=== PATIENT | male | born 1970 | race Caucasian/White ===

== ENCOUNTER 2021-04-10 07:01 | Emergency (ER) | payer BC ==
[2021-04-10 07:15] VITALS: BP 140/91; PULSE 81; O2SAT 98
[2021-04-10] MEDS ORDERED: Adacel Vial IM ONE ×2 (07:25→07:32)
[2021-04-10] MEDS ORDERED: Cleocin Phosphate IV 600 MG/4 ML IM STA (07:29)
[2021-04-10] MEDS ORDERED: Cleocin Phosphate IV 600 MG/4 ML ONE (07:32)
[2021-04-10] MEDS ORDERED: TYLENOL 325 MG PO ONE (07:36)
[2021-04-10] MEDS ORDERED: TORAdol 30 mg Injection ONE (07:43)
[2021-04-10] MEDS ORDERED: TYLENOL 325 MG ONE (07:44)
[2021-04-10] MEDS ORDERED: TORAdol 30 mg Injection IM ONE (07:44)
--- NOTE | 2021-04-10 07:44 | ERPHSYRPT ---
- History of Present Illness Time Seen by Provider: 04/10/21 07:15 Source: patient Exam Limitations: no limitations Patient Subjective Stated Complaint: Laceration Triage Nursing Assessment: Patient ambulated back to ED and transferred self to bed. Patient A+O X3. Patient's skin pink, warm and dry. Patient complains of laceration to right side palm of hand. Patient states he was taking a bag of trash to the dumpster when his hand went through the bag causing window glass that was at the bottom of the bag went through his hand. Patient complains of pain and numbness to right hand and fingers 6/10. 2 cm laceration noted to right hand palm. Physician History: Patient is a 50-year-old male presents to emergency department for evaluation of laceration to the palmar aspect of his right hand. Patient states he was taking out the trash pushed the trash bag and subsequently impaled himself with broken glass. Injury occurred just prior to arrival. Patient complains of numbness pain and tingling to the fingers along the median nerve distribution. Pain rated 6 out of 10. No other injuries reported. Symptoms are mild to moderate in intensity. Palpation reproduces symptoms. No blunt trauma. No bony pain or tenderness. Patient states otherwise healthy. He voices no other complaints or concerns at this time. Occurred: just prior to arrival Method of Injury: other (Impaled right hand with glass.) Quality: constant Severity of Pain-Max: moderate Severity of Pain-Current: mild Extremities Pain Location: hand: right Modifying Factors: Improves With: movement Associated Symptoms: none Allergies/Adverse Reactions: No Known Drug Allergies Allergy (Unverified 04/10/21 07:05) Home Medications: Oxycodone HCl/Acetaminophen [Percocet 7.5-325 mg Tablet] 1 tab PO TID 04/10/21 [History] Hx Tetanus, Diphtheria Vaccination/Date Given: No Hx Influenza Vaccination/Date Given: No Hx Pneumococcal Vaccination/Date Given: No Immunizations Up to Date: Yes Travel Risk - International Travel Have you traveled outside of the country in past 3 weeks: No - Coronavirus Screening Are you exhibiting any of the following symptoms?: No Close contact with a COVID-19 positive Pt in past 14-21 Days: No - Vaccine Status Have you recieved a Covid-19 vaccination: Yes Resource Economist: Moderna - Vaccination Dates Date of 2cond Vaccination (if applicable): 04/27/2020 Comment: Booster 01/02/2021 - Review of Systems Constitutional: No Symptoms, No Fever, No Chills Eyes: No Symptoms Ears, Nose, & Throat: No Symptoms Respiratory: No Symptoms, No Cough, No Dyspnea Cardiac: No Symptoms, No Chest Pain, No Edema, No Syncope Abdominal/Gastrointestinal: No Symptoms, No Abdominal Pain, No Nausea, No Vomiting, No Diarrhea Genitourinary Symptoms: No Symptoms, No Dysuria Musculoskeletal: No Symptoms, No Back Pain, No Neck Pain Skin: No Symptoms, No Rash Neurological: No Symptoms, No Dizziness, No Focal Weakness, No Sensory Changes Psychological: No Symptoms Endocrine: No Symptoms Hematologic/Lymphatic: No Symptoms Immunological/Allergic: No Symptoms All Other Systems: Reviewed and Negative - Past Medical History Pertinent Past Medical History: Yes Neurological History: No Pertinent History ENT History: No Pertinent History Cardiac History: No Pertinent History Respiratory History: No Pertinent History Endocrine Medical History: No Pertinent History Musculoskeletal History: Other GI Medical History: No Pertinent History History: No Pertinent History Psycho-Social History: No Pertinent History Male Reproductive Disorders: No Pertinent History Other Medical History: back pain - Past Surgical History Past Surgical History: Yes Neuro Surgical History: No Pertinent History Cardiac: No Pertinent History Respiratory: No Pertinent History Gastrointestinal: No Pertinent History Genitourinary: No Pertinent History Musculoskeletal: Orthopedic Surgery Male Surgical History: No Pertinent History Other Surgical History: back surgery with rods and pins. Back stimulator - Social History Smoking Status: Never smoker Exposure to second hand smoke: No Drug Use: none Patient Lives Alone: No - Nursing Vital Signs Nursing Vital Signs: Initial Vital Signs Temperature 97.4 F 04/10/21 07:07 Pulse Rate 81 04/10/21 07:07 Respiratory Rate 18 04/10/21 07:07 Blood Pressure 140/91 04/10/21 07:07 O2 Sat by Pulse Oximetry 98 04/10/21 07:07 Pain Scale Pain Intensity 6 - Physical Exam General Appearance: no apparent distress, alert Eyes, Ears, Nose, Throat Exam: normal ENT inspection, moist mucous membranes Neck Exam: non-tender, supple Cardiovascular/Respiratory Exam: chest non-tender, normal breath sounds, regular rate/rhythm, no respiratory distress Abdominal Exam: non-tender, No guarding Back Exam: normal inspection, No vertebral tenderness Shoulder Exam: normal inspection, non-tender, no evidence of injury, normal ROM Elbow/Forearm Exam: normal inspection, non-tender, no evidence of injury, normal ROM Wrist Exam: normal inspection, non-tender, no evidence of injury, normal ROM Hand Exam: laceration, limited ROM (Limited range of motion due to pain. There is a 1 cm laceration/puncture wound with a flap to the palmar aspect of the right hand at the level of the median nerve. No active bleeding upon my inspection.), soft tissue tenderness (Wound was explored however no foreign body was observed. Patient denied foreign body sensation. Exploration was somewhat limited due to the amount of blood. ), No bone tenderness Neuro/Tendon Exam: normal sensation, normal motor functions Mental Status Exam: alert, oriented x 3, cooperative Skin Exam: normal color, warm, dry SpO2 Interpretation: normal SpO2: 98 O2 Delivery: Room Air - Course Nursing assessment & vital signs reviewed: Yes Ordered Tests: Medication Summary Discontinued Medications Generic Name Dose Route Start Last Admin Trade Name Freq PRN Reason Stop Dose Admin Acetaminophen 975 mg 04/10/21 07:36 04/10/21 07:45 Acetaminophen 325 Mg Tablet PO 04/10/21 07:37 975 mg STAT ONE Administration Acetaminophen Confirm 04/10/21 07:44 Acetaminophen 325 Mg Tablet Administered 04/10/21 07:45 Dose 975 mg .ROUTE .STK-MED ONE Clindamycin Phosphate 600 mg 04/10/21 07:29 04/10/21 07:34 Clindamycin Phosphate 600 Mg/4 Ml Vial IM 04/10/21 07:30 600 mg ONCE STA Administration Clindamycin Phosphate Confirm 04/10/21 07:32 Clindamycin Phosphate 600 Mg/4 Ml Vial Administered 04/10/21 07:33 Dose 600 mg .ROUTE .STK-MED ONE Diphtheria/Tetanus/Acell Pertussis 0.5 ml 04/10/21 07:25 04/10/21 07:34 Tdap --Diph,Pertuss(Acell),Tet Vac/Pf 0.5 Ml Vial IM 04/10/21 07:26 0.5 ml .ONCE ONE Administration Diphtheria/Tetanus/Acell Pertussis Confirm 04/10/21 07:32 Tdap --Diph,Pertuss(Acell),Tet Vac/Pf 0.5 Ml Vial Administered 04/10/21 07:33 Dose 0.5 ml IM .STK-MED ONE Ketorolac Tromethamine 30 mg 04/10/21 07:44 04/10/21 07:45 Ketorolac Tromethamine 30 Mg/Ml Inj IM 04/10/21 07:45 30 mg STAT ONE Administration Ketorolac Tromethamine Confirm 04/10/21 07:43 Ketorolac Tromethamine 30 Mg/Ml Inj Administered 04/10/21 07:44 Dose 30 mg .ROUTE .STK-MED ONE - Progress Progress: improved Progress Note: Patient reassessed. Patient received Tylenol and Toradol for pain. Pain significantly improved. Patient has decreased sensation along the median nerve distribution of the right hand. There appears to be significant nerve injury. No blunt trauma. Movement is limited due to pain. Patient received a tetanus update. Patient received an intramuscular dose of clindamycin. Patient has no allergies. Wound was irrigated in our ED. We contacted Dr. Anaya hand surgeon in [place]. Dr. Anaya will see patient this morning in his clinic. Patient chose to drive himself to the clinic. Transfer paperwork completed. Patient was drive directly to Dr. Anaya's office in [place]. Extremity/right hand neurovascular intact distally post dressing application. Radial pulse palpable. Cap refill less than 2 seconds. Compartments are soft. Portions of this note were created with voice recognition technology. There may be grammatical, spelling, punctuation or sound alike errors 04/10/21 07:58 Counseled pt/family regarding: diagnosis, need for follow-up - Departure Departure Disposition: Transfer Clinical Impression: Median nerve injury, Hand laceration Condition: Stable Critical Care Time: No Referrals: LUIS ANGEL ELIZONDO MD [Primary Care Provider] - Follow up/PCP as directed Additional Instructions: Discharge/Care Plan CYRILLUIS ANGEL NUNEZ was seen on 04/10/21 in the Emergency Room. The patient was counseled regarding Diagnosis,Lab results, Imaging studies, need for follow up and when to return to the Emergency Room. Prescriptions given: Discharge Note I have spoken with the patient and/or caregivers. I have explained the patient's condition, diagnosis and treatment plan based on the information available to me at this time. I have answered the patient's and/or caregiver's questions and addressed any concerns. The patient and/or caregivers have as good understanding of the patient's diagnosis, condition and treatment plan as can be expected at this point. The vital signs have been stable. The patient's condition is stable and appropriate for discharge from the emergency department. The patient will pursue further outpatient evaluation with the primary care physician or other designated or consulting physician as outlined in the discharge instructions. The patient and/or caregivers are agreeable to this plan of care and follow-up instructions have been explained in detail. The patient and/or caregivers have received these instruction. The patient/and or caregivers are aware that any significant change in condition or worsening of symptoms should prompt an immediate return to this or the closest emergency department or call 911.
== END 2021-04-10 08:00 ==
LOC: ED 07:01
DX: S64.11XA Injury of median nerve at wrist and hand level of right arm, initial encounter (principal); S61.411A Laceration without foreign body of right hand, initial encounter; W25.XXXA Contact with sharp glass, initial encounter; Y93.E9 Activity, other interior property and clothing maintenance; Y92.007 Garden or yard of unspecified non-institutional (private) residence as the place of occurrence of the external cause; Z79.891 Long term (current) use of opiate analgesic
CPT/HCPCS: 90471; 90715; 96372; 99284; J1885; A9270-GY

== ENCOUNTER 2024-03-26 06:10 | Day surgery (SDC) | payer BC ==
[2024-03-26] MEDS: Lactated Ringers 1,000 ML IV SCH (06:43)
[2024-03-26 06:56] VITALS: RESP 16
[2024-03-26] MEDS ORDERED: propofoL IV ONE ×2 (08:09→08:18)
[2024-03-26 09:10] VITALS: BP 131/93; PULSE 73; TEMP 97.8; O2SAT 98
--- NOTE | 2024-03-26 14:36 | OP ---
SURGERY DATE/TIME: 03/26/24 [id number] PREOPERATIVE DIAGNOSIS: Screening exam, previous possible history of Crohn disease. POSTOPERATIVE DIAGNOSIS: Normal exam. PROCEDURE: Colonoscopy. SURGEON: Louie Beal MD ANESTHESIA: Medication given by the anesthesia department. INDICATIONS: The patient is a 53-year-old white male patient who presents now for screening colonoscopy. He reports that several years ago he had endoscopy by Dr. Garcia, the GI specialist in [place], who reported that the patient had Crohn disease at the time but the patient has had no symptoms and no problems for many years. He is presenting now for a screening exam. The patient was apprised of the risks of the procedure including risk of perforation, phlebitis, untoward reaction to medication, bleeding, and missed lesions. The patient verbalized understanding and desired to have procedure performed. DESCRIPTION OF PROCEDURE AND FINDINGS: The patient was given medication by the anesthesia department. He had continuous pulse oximetry, ECG monitoring, and intermittent blood pressure monitoring during the examination. He was placed in the left lateral decubitus position. Digital rectal examination was performed and revealed normal anal sphincter tone, no masses, and a normal prostate. The flexible Olympus video colonoscope was used to intubate the rectum. A view of the colon was developed sequentially to the cecum. Upon insertion and withdrawal, including retroflexion view in the rectum, no mucosal lesions were encountered. The scope was removed from the patient who tolerated the procedure well and sent back to outpatient recovery in good condition. The prep was noted to be good.
== END 2024-03-26 09:23 | disposition home or self-care (01) ==
LOC: SDC 06:10
PROVIDERS: ATTEND Family Medicine
DX: Z12.11 Encounter for screening for malignant neoplasm of colon (principal); Z87.19 Personal history of other diseases of the digestive system
CPT/HCPCS: J2704